=== PATIENT | male | born 1945 | race Caucasian/White ===

== ENCOUNTER → 2016-10-05 | Outpatient (CLI) | payer OTHER | LOC: FIMAGING 13:51 | PROVIDERS: ATTEND Physical Medicine & Rehabilitation | DX: M51.86 Other intervertebral disc disorders, lumbar region (principal); M53.86 Other specified dorsopathies, lumbar region; M48.06 Spinal stenosis, lumbar region; Z98.1 Arthrodesis status ==

== ENCOUNTER → 2017-06-12 | Outpatient (CLI) | payer OTHER | LOC: FIMAGING 13:56 | PROVIDERS: ATTEND Internal Medicine | DX: Z12.2 Encounter for screening for malignant neoplasm of respiratory organs (principal); R91.8 Other nonspecific abnormal finding of lung field; Z87.891 Personal history of nicotine dependence ==

== ENCOUNTER → 2017-11-11 | Outpatient (CLI) | payer OTHER | LOC: FIMAGING 10:48 | PROVIDERS: ATTEND Internal Medicine | DX: R91.1 Solitary pulmonary nodule (principal); I25.10 Atherosclerotic heart disease of native coronary artery without angina pectoris ==

== ENCOUNTER → 2017-12-25 | Outpatient (CLI) | payer OTHER | LOC: BMCIMAGING 11:48 | PROVIDERS: ATTEND Internal Medicine | DX: M17.12 Unilateral primary osteoarthritis, left knee (principal); M25.462 Effusion, left knee ==

== ENCOUNTER → 2018-04-03 | Outpatient (CLI) | payer OTHER | LOC: FIMAGING 11:45 | PROVIDERS: ATTEND Nurse Practitioner | DX: Z09 Encounter for follow-up examination after completed treatment for conditions other than malignant neoplasm (principal); Z98.890 Other specified postprocedural states; M48.061 Spinal stenosis, lumbar region without neurogenic claudication; M43.16 Spondylolisthesis, lumbar region; M51.26 Other intervertebral disc displacement, lumbar region ==

== ENCOUNTER 2018-05-07 05:00 | Inpatient (IN) | payer OTHER ==
[2018-05-07] MEDS ORDERED: ceFAZolin 2 GM/DEXTROSE 100 ML IV ONE (05:46)
[2018-05-07] MEDS ORDERED: morphINE SR 15 MG TAB PO ONE (05:46)
[2018-05-07] MEDS ORDERED: GABAPENTIN 300 MG CAP PO ONE (05:46)
[2018-05-07] MEDS ORDERED: morphINE PF 0.2 MG in SYRINGE INTRATHECAL 1 SYR IT ONE (05:46)
[2018-05-07] MEDS ORDERED: ACETAMINOPHEN 500 MG TAB PO ONE (05:46)
[2018-05-07] MEDS ORDERED: LR 1,000 ML IV ONE (05:47)
[2018-05-07] MEDS ORDERED: BUPIVACAINE 0.25% 30 ML SDV ONE (06:26)
[2018-05-07] MEDS ORDERED: EPINEPHrine 1 MG/ML INJ ONE (06:26)
[2018-05-07] MEDS ORDERED: THROMBIN (BOVINE) 20,000 UNIT VIAL TP ONE (06:26)
[2018-05-07] MEDS ORDERED: CHLORHEXIDINE GLUC HIBICLENS 118 ML BTL TP ONE ×2 (06:26→06:27)
[2018-05-07] MEDS ORDERED: BACITRACIN 50,000 UNITS/10 ML SYR IRR ONE (06:26)
--- NOTE | 2018-05-07 06:51 | PDHPUP ---
History & Physical Update H&P update statement: This history and physical update is based on an assessment of the patient which was completed after admission or registration (within 24 hours), but prior to the surgery/procedure. H&P update: H&P reviewed & patient examined, no change in patient's condition since H&P completed (Consents signed and site marked. All questions answered.)
--- NOTE | 2018-05-07 06:59 | PDANEPAE ---
ANE Past Medical History - Cardiovascular History Hx Hypertension: Yes Hx Arrhythmias: Yes Hx Chest Pain: No Hx Coronary Artery / Peripheral Vascular Disease: Yes Hx CHF / Valvular Disease: No Hx Palpitations: No Cardiovascular History Comment: hx of afib from medication. CAD. hyperlipidemia. followed by [facility] cardiology Dr Brown - Pulmonary History Hx COPD: No Hx Asthma/Reactive Airway Disease: No Hx Recent Upper Respiratory Infection: No Hx Oxygen in Use at Home: No Hx Sleep Apnea: Yes Sleep Apnea Screening Result - Last Documented: Positive Pulmonary History Comment: lawrence triggers - Neurologic History Hx Cerebrovascular Accident: No Hx Seizures: No Hx Dementia: No Neurologic History Comment: spinal stenosis. 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 right RTC. left elbow. left knee scope. back x2 ANE Review of Systems Review of Systems: - Exercise capacity METS (RN): 4 METS ANE Patient History - Allergies Allergies/Adverse Reactions: diazepam [From Valium] Allergy (Verified 05/06/18 12:19) unable to move legs Penicillins Allergy (Verified 05/06/18 12:19) tremendous rash, throat closes procaine [From Novocain] Allergy (Verified 05/06/18 12:19) throat closes- has been a long time ago theophylline [Theophylline] Allergy (Verified 05/06/18 12:19) throws pt into AFIB - Home Medications Home Medications: Gemfibrozil [Lopid 600 MG (RX)] 600 mg PO DAILY 10/24/11 [Last Taken 05/07/18] Insulin Glargine [Lantus 100 UNITS/ML (RX)] 50 units SC BID 10/24/11 [Last Taken 05/07/18 03:00 26 units] Insulin Lispro [humALOG LISPRO 100 units/ml (RX)] 12 - 14 unit SC TIDMEAL [Last Taken 05/06/18 12:00 12 units] Lisinopril [Zestril 20 mg (RX)] 40 mg PO DAILY 10/24/11 [Last Taken 05/06/18] Omeprazole [Prilosec 20 mg] 20 mg PO DAILY 10/24/11 [Last Taken 05/07/18] metFORMIN HCL [Glucophage 500 mg (RX)] 1,000 mg PO BIDMEAL 10/24/11 [Last Taken 05/06/18] Cyanocobalamin [Vitamin B12 (*)] 2,500 mcg PO DAILY 05/01/18 [Last Taken ] Dulaglutide [Trulicity] 1.5 mg SQ SA 05/01/18 [Last Taken 05/02/18] Pregabalin [Lyrica 50mg (*)] 50 mg PO TID 05/01/18 [Last Taken 05/06/18] amLODIPine BESYLATE [Norvasc 5 mg (*)] 5 mg PO DAILY 05/01/18 [Last Taken ] traMADol [Ultram 50 mg (*)] 50 mg PO Q4 PRN 05/01/18 [Last Taken 05/06/18] - NPO status NPO Since - Liquids (Date): 05/07/18 NPO Since - Liquids (Time): 03:00 NPO Since - Solids (Date): 05/06/18 NPO Since - Solids (Time): 18:00 - Smoking Hx Smoking Status: Former smoker - Family Anes Hx Family Hx Anesthesia Complications: none ANE Labs/Vital Signs - Vital Signs Blood Pressure: 144/83 Heart Rate: 79 Respiratory Rate: 16 O2 Sat (%): 88 Height: 176.53 cm Weight: 117.027 kg ANE Physical Exam - Airway Neck exam: FROM Mallampati Score: Class 3 Mouth exam: normal dental/mouth exam - Pulmonary Pulmonary: clear to auscultation - Cardiovascular Cardiovascular: regular rate and rhythym - ASA Status ASA Status: III ANE Anesthesia Plan Anesthesia Plan: general endotracheal anesthesia Lines/Monitors: arterial line
[2018-05-07] MEDS ORDERED: DEXMEDETOMIDINE HCL 400 MCG in NS 100 ML IV SCH (07:00)
[2018-05-07] MEDS ORDERED: PROPOFOL 200 MG/20 ML VIAL ONE (07:04)
[2018-05-07] MEDS ORDERED: fentaNYL 100 MCG/2 ML INJ ONE (07:04)
[2018-05-07] MEDS ORDERED: PROPOFOL/EMULSION 500 MG/50 ML BOTTLE IV ONE ×2 (07:04→08:56)
[2018-05-07] MEDS ORDERED: LIDOCAINE 2% 100 MG/5 ML SYR ONE (07:09)
[2018-05-07] MEDS ORDERED: ROCURONIUM 50 MG/5 ML VIAL ONE ×2 (07:09→08:01)
[2018-05-07] MEDS ORDERED: METOCLOPRAMIDE 10 MG/2 ML VIAL ONE (07:12)
[2018-05-07] MEDS ORDERED: GLYCOPYRROLATE 0.2 MG/1 ML VIAL ONE (07:48)
[2018-05-07] MEDS ORDERED: DEXAMETHASONE 4 MG/ML VIAL ONE (07:50)
[2018-05-07] MEDS ORDERED: PHENYLEPHRINE 10 MG/ML SDV ONE (08:09)
[2018-05-07] MEDS ORDERED: VASOPRESSIN 20 UNIT/ML VIAL ONE (08:27)
[2018-05-07] MEDS ORDERED: METOCLOPRAMIDE 10 MG/2 ML VIAL IVP PRN (10:36)
[2018-05-07] MEDS ORDERED: ONDANSETRON 4 MG/2 ML VIAL IVP PRN ×2 (10:36→11:25)
[2018-05-07] MEDS ORDERED: ALBUTEROL 3 ML DEYVIAL IH PRN (10:36)
[2018-05-07] MEDS ORDERED: NALOXONE HCL 0.4 MG/ML INJ IVP PRN ×2 (10:36→11:25)
[2018-05-07] MEDS ORDERED: HYDROmorphONE/DILAUDID 2 MG/ML INJ IVP PRN (10:36)
[2018-05-07] MEDS ORDERED: PROMETHAZINE HCL 25 MG/ML INJ IVP PRN (10:36)
[2018-05-07] MEDS ORDERED: MEPERIDINE 25 MG/0.5 ML AMP IVP PRN (10:36)
[2018-05-07] MEDS ORDERED: fentaNYL 100 MCG/2 ML INJ IVP PRN (10:36)
[2018-05-07] MEDS ORDERED: LR 500 ML IV PRN ×2 (10:36→11:49)
[2018-05-07] MEDS ORDERED: ONDANSETRON 4 MG/2 ML VIAL ONE (10:44)
[2018-05-07] MEDS ORDERED: MAGNESIUM HYDROXIDE 30 ML UDCUP PO PRN (11:25)
[2018-05-07] MEDS ORDERED: ONDANSETRON DISINTEGRATING 4 MG TAB PO PRN (11:25)
[2018-05-07] MEDS ORDERED: POLYETHYLENE GLYCOL 3350 17 GM PKT PO PRN (11:25)
[2018-05-07] MEDS ORDERED: diphenhydrAMINE 25 MG CAP PO PRN (11:25)
[2018-05-07] MEDS ORDERED: BISACODYL 10 MG SUPP PR PRN (11:25)
[2018-05-07] MEDS ORDERED: LACTULOSE 20 GM/30 ML UDCUP PO PRN (11:25)
[2018-05-07] MEDS ORDERED: NS 1,000 ML IV SCH (11:30)
--- NOTE | 2018-05-07 11:35 | POSTOPPROG ---
Post Op Note Date of Operation: 05/07/18 Surgeon: Roldan Claros Cartridge Loading Operator: SEVERO Grossman APC Anesthesia: GET(General Endotracheal) Pre-op Diagnosis: lumbar stenosis, spondylothesis Post-op Diagnosis: lumbar stenosis, spondylothesis Indication: lumbar stenosis, spondylothesis Procedure: Exploration and revision of hardware, L4/5 right TLIF/PSF Inf/Abcess present in the surg proc area at time of surgery?: No EBL: 100-500 Drains: Odin ALEXANDER Addendum - Addendum .: S: Resting comfortably O: NAD A&Ox3 MAEx4 5/5 and equal in BUE and BLE A/P Exploration and revision/removal of hardware L5/S1 and L4/5 right TLIF/PSF -Optimize pain management -Advance diet as tolerated -LSO when OOB -PT/OT -Post op xrays pending -JPx1 -DVT prophx: TEDs, SCDs, Lovenox okay POD1 -Please notify NS wimarcos any change in neuro/motor exam
--- NOTE | 2018-05-07 11:56 | GOP ---
[f rep st] OPERATIVE REPORT DATE OF OPERATION: 05/07/2018 SURGEON: Roldan Claros MD LICENSED JOURNEYMAN ELECTRICIAN: Phyllis Grossman PA-C. ANESTHESIA: General. PREOPERATIVE DIAGNOSIS: 1. L4-L5 grade 1 spondylolisthesis with bilateral lateral recess and foraminal stenosis. 2. History of prior fusion, L5-S1, with bilateral pedicle screw placement, as well as Coflex placement. 3. Lower extremity radiculopathy and claudication. 4. Treatment refractory to nonoperative intervention. POSTOPERATIVE DIAGNOSIS: 1. L4-L5 grade 1 spondylolisthesis with bilateral lateral recess and foraminal stenosis. 2. History of prior fusion, L5-S1, with bilateral pedicle screw placement, as well as Coflex placement. 3. Lower extremity radiculopathy and claudication. 4. Treatment refractory to nonoperative intervention. PROCEDURE PERFORMED: 1. Posterior arthrodesis with approach to L4, L5, S1. 2. Exploration of prior hardware between L4-L5 including Coflex device, as well as bilateral pedicle screws at L5-S1 from the DePuy Viper system. 3. Removal of Coflex device at L4-5, as well as bilateral pedicle screws and rods from the L5-S1 levels from the DePuy Viper system. 4. Posterolateral fusion with bilateral pedicle screw placement at L4 and L5 from the [employer] Solera 4.75 system. 5. Decompressive laminectomy, L4-L5, with right-sided L4-L5 facetectomy and foraminotomy with nerve root decompression. 6. Right-sided L4-5 transforaminal lumbar interbody fusion with a 9 mm titanium polyetheretherketone elevated cage filled with morselized autograft and allograft. 7. Posterolateral fusion on the left between L4-5 with morselized autograft and allograft. 8. Use of intraoperative 3D Stealth navigation. 9. Use of intraoperative fluoroscopy, less than 1 hour physician time. 10. Use of neuromonitoring. 11. Use of operative microscope. 12. Injection of preservative-free intrathecal narcotics. FINDINGS: per imaging SPECIMENS: None. ESTIMATED BLOOD LOSS: 350 mL. INDICATIONS: The patient is a very pleasant 72-year-old gentleman who has undergone prior lumbar fusion with Dr. Matt Werner, as well as Dr. North up in [place]. The patient presented with worsening bilateral lower extremity radiculopathy and had evidence of grade 1 spondylolisthesis at L4-5 above his prior fusion at L5-S1 with bilateral neural foraminal stenosis. After discussion of risks, benefits, and alternatives, and after failing nonoperative intervention, we decided to proceed with the surgery as described above. DESCRIPTION OF PROCEDURE: The patient was brought to the operating theater and underwent general endotracheal anesthesia without complications. Venodynes, CHRISTIANO hose, and the appropriate lines were placed by Anesthesia. He was flipped prone onto the Odin table, and all bony prominences were inspected and padded. The previous lumbar incision was identified and prepped and draped in the usual sterile surgical fashion. A time-out was completed per protocol, and the patient received antibiotics within 1 hour of incision. The incision was infiltrated with Marcaine with epinephrine and taken down with the scalpel blade. Using monopolar, the incision was taken down in the midline through the lumbodorsal fascia and a subperiosteal dissection carried out at the spinous process of L4. We carried the dissection out laterally to avoid the previous defect and identified the hardware at the L5-S1 level, as well as the L4-5 Coflex device. Deep retractors were placed to maintain our exposure. The dissection was extremely tedious secondary to the patient's body habitus. We then removed the sequential cap screws from the bilateral L5 and S1 levels, as well as bilateral rods. We explored this area and he was noted to be fused on further distraction attempts. We removed the bilateral L5 and S1 pedicle screws from the DePuy Viper system. We replaced the bilateral L5 screws with 6.5 x 55 mm screws from the [employer] Solera 4.75 system. We removed 7.0 x 50 mm screws from the S1 level. We attached the 3D Stealth navigation clamp to the spinous process of L4 and completed a 3D Stealth navigation spin. Using the 3D Stealth navigation, we placed the supervising airplane pilot holes for the bilateral pedicle screws in L4. All of these were manually palpated with no evidence of any cortical breaches. We then tapped and placed 6.5 x 55 mm screws bilaterally at L4 from [employer] Solera 4.75 system. At this point, another 3D Stealth navigation spin demonstrated good placement of the hardware. At this point, the microscope was brought into the field to assist with microscopic dissection and to maintain illumination and magnification. Using a combination of the bur tip on the drill bit, Kerrison punches, and Leksell rongeur, we completed a decompressive laminectomy at L4-L5. The tissue was noted to be extremely adherent and inflamed within this area. We completed aggressive facetectomy on the right side at L4-5. We distracted the L4-5 disk space and completed a right-sided L4-5 diskectomy. We prepared the cartilaginous endplates and measured the interbody space. We then placed a 9 x 26 mm titanium PEEK Elevate cage filled with morselized autograft and allograft anteriorly and toward the midline. We packed additional morcellized autograft in the disk space for the interbody fusion, and let down the distraction. I attempted to do a foraminotomy on the left side between L4-5 but the tissue was noted to be extremely scarred and adherent at this level, and I therefore opted not to the risk the possibly of a dural tear or nerve root injury. At this point, I decorticated the bone on the left side between L4-5. We placed 2 lordotic rods on the heads of the screws between L4-5 and secured them down with cap screws which were then tightened per the student services director's setting. We placed morselized autograft and allograft on the left side for the posterolateral fusion. We injected preservative-free intrathecal narcotics. A drain was left in the subfascial space. The wound was closed in multiple layers including Vicryl sutures for the deep layers and Dermabond at the skin. The patient's wounds were dressed sterilely. He was flipped supine onto the transfer cart where he was awakened, extubated, and taken to the recovery in stable condition. There were no complications and no noted changes on neuromonitoring throughout the procedure. Please note, this surgery was greater than 50% more challenging than the average surgery secondary to the patient's inflammatory tissues, as well as his body habitus for the dissection. COMPLICATIONS: None. /[id number]/MODL MTDD
[2018-05-07] MEDS: INSULIN LISPRO 100 UNIT/ML SC SCH ×2 (12:00→18:09)
[2018-05-07] MEDS ORDERED: PHENYLEPHRINE HCL 100 MCG/ML SYR ONE (12:05)
[2018-05-07] MEDS: PHENYLEPHRINE HCL 100 MCG/ML SYR IVP PRN ×3 (12:05→12:34)
--- NOTE | 2018-05-07 12:27 | POSTANESTH ---
Post Anesthetic Evaluation Cardiovascular Status: Tx Hyper/Hypo-tension Respiratory Status: Tx Decrease in SpO2 Level of Consciousness/Mental Status: Can Participate in Eval Pain Control: Adequate, Prn Tx Ordered Nausea/Vomiting Control: Adequate, Prn Tx Ordered Complications Possibly Related to Anesthesia: None Noted (No complications directly related to anesthesia, but patient with decreased SpO2, requiring 15L oxymask to maintain SpO2 > 90%. Diminished breath sounds at bases. No crackles or wheezes. In PACU, decreased BP, treated with phenylephrine IVP + fluids. Instructed RN to give fluids and have low threshold to start phenylephrine IVP + drip to maintain SBP > 100 mmHg. The patient is calm, but awake and answering questions appropriately. No distress or obtundation.)
[2018-05-07] MEDS ORDERED: ALBUMIN 5% 500 ML IV ONE (12:30)
[2018-05-07] MEDS ORDERED: PHENYLEPHRINE HCL 50 MG in D5W 250 ML IV SCH (12:30)
--- NOTE | 2018-05-07 12:41 | PDMN ---
Medical Necessity Medical necessity: [facility] IP only surgery; cpt 69483 Lumbar Fusion (L4/5 TLIF/PSF )
[2018-05-07] MEDS ORDERED: ACETAMINOPHEN 500 MG TAB ONE (14:41)
[2018-05-07] MEDS ORDERED: CEFAZOLIN 2 GM/DEXTROSE/100 ML BAG IV ONE (14:42)
[2018-05-07] MEDS ORDERED: ALTEPLASE 2 MG VIAL IVP PRN (14:45)
[2018-05-07] MEDS: ACETAMINOPHEN 500 MG TAB PO SCH ×2 (14:46→21:04)
[2018-05-07] MEDS: ceFAZolin 2 GM/DEXTROSE 100 ML IV SCH ×2 (14:52→21:34)
[2018-05-07] MEDS: PREGABALIN 50 MG CAP PO SCH (15:48)
[2018-05-07] MEDS: metFORMIN HCL 500 MG TAB PO SCH (18:10)
[2018-05-07] MEDS ORDERED: SCOPOLAMINE HYDROBROMIDE 1 MG/3 DAYS PATCH TD SCH (21:00)
[2018-05-07] MEDS ORDERED: FAMOTIDINE 20 MG TAB PO SCH (21:00)
[2018-05-07] MEDS: INSULIN GLARGINE 100 UNITS/ML UNIT SC SCH (21:04)
[2018-05-07] MEDS: SENNOSIDES/DOCUSATE SODIUM TAB PO SCH (21:04)
[2018-05-07] MEDS: FAMOTIDINE 20 MG/NACL 50 ML IV SCH (21:11)
[2018-05-08] MEDS: PREGABALIN 50 MG CAP PO SCH ×4 (00:22→20:52)
[2018-05-08] MEDS: METHOCARBAMOL 750 MG TAB PO PRN ×3 (04:52→21:00)
[2018-05-08] MEDS: oxyCODONE IR 5 MG TAB PO PRN ×2 (06:14→12:23)
[2018-05-08] MEDS: ACETAMINOPHEN 500 MG TAB PO SCH ×3 (06:15→20:54)
[2018-05-08] MEDS: FAMOTIDINE 20 MG/NACL 50 ML IV SCH (07:21)
[2018-05-08] MEDS: INSULIN LISPRO 100 UNIT/ML SC SCH ×3 (07:24→17:13)
[2018-05-08] MEDS: SENNOSIDES/DOCUSATE SODIUM TAB PO SCH ×2 (07:58→20:52)
[2018-05-08] MEDS: metFORMIN HCL 500 MG TAB PO SCH ×2 (07:58→17:13)
[2018-05-08] MEDS: PANTOPRAZOLE SODIUM 40 MG TAB PO SCH (07:59)
[2018-05-08] MEDS: INSULIN GLARGINE 100 UNITS/ML UNIT SC SCH ×2 (08:04→20:55)
[2018-05-08] MEDS: GEMFIBROZIL 600 MG TAB PO SCH (08:17)
--- NOTE | 2018-05-08 09:51 | ASMTCASEMG ---
Living Arrangements What is your living Answers: With Spouse arrangement? Who do you live with? Type Of Residence What kind of residence do Answers: House you live in? Discharge Plan Comments Coordination Status Comments Notes: Patient is a 72yo male who comes to [facility] for spinal surgery. OT/PT evals have been ordered. D/C plan TBD. CM will follow. Date Signed: 05/08/2018 09:51 AM Electronically Signed By:Jessica Marmolejo LCSW
--- NOTE | 2018-05-08 09:54 | NEUSURGPN ---
Assessment/Plan: A/P Exploration and revision/removal of hardware L5/S1 and L4/5 right TLIF/PSF POD1 -Optimize pain management -LSO when OOB -PT/OT -Post op xrays pending -JPx1 continue today -DVT prophx: TEDs, SCDs, Lovenox okay POD1 -Hypotension improved, will continue KV fluids hold BP meds and transfer to the floor -Please notify NS wiht any change in neuro/motor exam Subjective: low back pain, tolerable with medications. Objective: O: NAD A&Ox3 MAEx4 5/ and equal in BUE and BLE. Incision c/d/i. MULUGETA drain serosanguineous - Physician Discussed Patient with Dr.: Harlan Neurosurgery Physical Exam - Vitals, I&O, Labs I and O 05/07/18 05/08/18 05/09/18 05:59 05:59 05:59 Intake Total 4288 650 Output Total 4035 40 Balance 253 610 Weight 117.027 kg 117.027 kg Intake: Oral (ml) 840 650 IV Intake (ml) 2500 IV Infused (ml) 948 Ns 1,000 ml @ 75 mls/hr 870 IV CONT SENAIT Rx#: [id number] Phenylephrine HCl 50 mg 78 In D5w 250 ml @ Titrate IV CONT SENAIT Rx#: [id number] Output: Urine (ml) 2050 Catheter 2050 Estimated Blood Loss (ml) 300 Emesis (ml) 1200 MULUGETA Drain Output (ml) 485 40 Back Odin De La Garza 485 40 Other: Intake Quantity Yes Sufficient Number of Stools Catheter 0 Vital Signs Temp Pulse Resp BP Pulse Ox 37.0 C 74 13 119/63 92 05/08/18 06:00 05/08/18 07:45 05/08/18 07:45 05/08/18 07:45 05/08/18 07:45 Laboratory Results 05/07/18 11:49 ICD10 Worksheet Patient Problems: Problems Problem Status Onset Lumbar stenosis Acute
[2018-05-08] MEDS: LISINOPRIL 20 MG TAB PO SCH (10:17)
[2018-05-08] MEDS: amLODIPine BESYLATE 5 MG TAB PO SCH (10:17)
[2018-05-08] MEDS: traMADol 50 MG TAB PO PRN (10:46)
[2018-05-08] MEDS: ENOXAPARIN 40 MG/0.4 ML SYR SC SCH (16:18)
[2018-05-08] MEDS: FAMOTIDINE 20 MG TAB PO SCH (20:52)
[2018-05-09] MEDS: traMADol 50 MG TAB PO PRN ×2 (01:40→14:24)
[2018-05-09] MEDS: ACETAMINOPHEN 500 MG TAB PO SCH ×3 (06:31→21:28)
[2018-05-09] MEDS: INSULIN LISPRO 100 UNIT/ML SC SCH ×3 (08:02→17:16)
[2018-05-09] MEDS: metFORMIN HCL 500 MG TAB PO SCH ×2 (08:10→17:14)
[2018-05-09] MEDS: oxyCODONE IR 5 MG TAB PO PRN (08:17)
--- NOTE | 2018-05-09 09:30 | SOAPPROG ---
SOAP Progress Note Assessment/Plan: Assessment: 72 yo M sp hardware removal and L4/5 TLIF Plan: neuro: stable and doing well overall :) PT/OT post op x-rays look great scd/marvin/lovenox for dvt prophylaxis constipation: RN to be aggressive with bowel protocol MULUGETA x1, dc before dc home please call with neuro changes 05/09/18 09:28 Subjective: + back pain, no leg pain, no weakness. Objective: Vital Signs Temp Pulse Resp BP Pulse Ox 36.8 C 84 16 148/80 H 91 L 05/09/18 07:56 05/09/18 07:56 05/09/18 07:56 05/09/18 07:56 05/09/18 07:56 Laboratory Results 05/07/18 11:49 05/08/18 05/09/18 05/10/18 05:59 05:59 05:59 Intake Total 4288 3495 500 Output Total 4035 450 Balance 253 3045 500 AAOx4 ,+FC PERRL, EOMI, no facial droop 5/5 + light touch C/D/I ICD10 Worksheet Patient Problems: Problems Problem Status Onset Lumbar stenosis Acute
[2018-05-09] MEDS: SENNOSIDES/DOCUSATE SODIUM TAB PO SCH ×2 (10:12→21:29)
[2018-05-09] MEDS: amLODIPine BESYLATE 5 MG TAB PO SCH (10:13)
[2018-05-09] MEDS: FAMOTIDINE 20 MG TAB PO SCH ×2 (10:13→21:28)
[2018-05-09] MEDS: PANTOPRAZOLE SODIUM 40 MG TAB PO SCH (10:14)
[2018-05-09] MEDS: PREGABALIN 50 MG CAP PO SCH ×3 (10:14→21:28)
[2018-05-09] MEDS: GEMFIBROZIL 600 MG TAB PO SCH (10:14)
[2018-05-09] MEDS: LISINOPRIL 20 MG TAB PO SCH (10:14)
[2018-05-09] MEDS: ENOXAPARIN 40 MG/0.4 ML SYR SC SCH (10:16)
[2018-05-09] MEDS: INSULIN GLARGINE 100 UNITS/ML UNIT SC SCH ×2 (10:17→22:32)
[2018-05-09] MEDS ORDERED: (Dulaglutide [Trulicity] 1.5 MG) SQ SCH (11:23)
[2018-05-09] MEDS: METHOCARBAMOL 750 MG TAB PO PRN (14:23)
[2018-05-10] MEDS: ACETAMINOPHEN 500 MG TAB PO SCH (05:54)
[2018-05-10 08:02] VITALS: BP 137/73
[2018-05-10] MEDS: traMADol 50 MG TAB PO PRN (08:10)
[2018-05-10] MEDS: INSULIN LISPRO 100 UNIT/ML SC SCH ×2 (08:24→12:47)
[2018-05-10] MEDS: metFORMIN HCL 500 MG TAB PO SCH (08:25)
[2018-05-10] MEDS: SENNOSIDES/DOCUSATE SODIUM TAB PO SCH (08:30)
[2018-05-10] MEDS: FAMOTIDINE 20 MG TAB PO SCH (08:30)
[2018-05-10] MEDS: GEMFIBROZIL 600 MG TAB PO SCH (08:30)
[2018-05-10] MEDS: amLODIPine BESYLATE 5 MG TAB PO SCH (08:31)
[2018-05-10] MEDS: PREGABALIN 50 MG CAP PO SCH (08:31)
[2018-05-10] MEDS: LISINOPRIL 20 MG TAB PO SCH (08:31)
[2018-05-10] MEDS: ENOXAPARIN 40 MG/0.4 ML SYR SC SCH (08:32)
[2018-05-10] MEDS: PANTOPRAZOLE SODIUM 40 MG TAB PO SCH (08:32)
[2018-05-10] MEDS: INSULIN GLARGINE 100 UNITS/ML UNIT SC SCH (08:34)
--- NOTE | 2018-05-10 10:32 | SOAPPROG ---
SOAP Progress Note Assessment/Plan: Assessment: 72 yo M sp hardware removal and L4/5 TLIF Plan: neuro: stable and doing well overall :) PT/OT post op x-rays look great scd/marvin/lovenox for dvt prophylaxis constipation: RN to be aggressive with bowel protocol MULUGETA x1, dc before dc home dc home with HHC please call with neuro changes 05/09/18 09:28 05/10/18 10:31 Subjective: back pain improving, no leg pain. Objective: Vital Signs Temp Pulse Resp BP Pulse Ox 36.7 C 89 14 137/73 H 92 05/10/18 08:00 05/10/18 08:00 05/10/18 08:00 05/10/18 08:31 05/10/18 08:00 Laboratory Results 05/07/18 11:49 05/09/18 05/10/18 05/11/18 05:59 05:59 05:59 Intake Total 3495 1900 500 Output Total 450 470 Balance 3045 1430 500 AAOx4, +FC PERRL, EOMI, no facial droop 5/5 + light touch C/D/I ICD10 Worksheet Patient Problems: Problems Problem Status Onset Lumbar stenosis Acute
--- NOTE | 2018-05-10 10:33 | PDIAF ---
- Diagnosis Code Status: Full Code - Medication Management Discharge Medications: electronically signed and located in the Home Medication List. PICC Care - Routine: N/A - Orders Services needed: Home Care, Physical Therapy, Occupational Therapy Home Care Face to Face: I certify that this patient was under my care and that I had the required oknu-bh-habn encounter meeting the encounter requirements on the discharge day. My findings support the fact that the patient is homebound as defined in Home Care Face to Face Continued: CMS Chapter 7 Medicare Benefits Manual 30.1.1 , The condition of the patient is such that there exists a normal inability to leave home and consequently, leaving home would require a considerable and taxing effort. Diet Recommendation: no restrictions on diet Diet Texture: Regular Texture Diet Rice: No Additional Instructions: discharge with lumbar fusion post op instructions follow up with dr jeong in 2 weeks, LSO brace when out of bed. - Follow Up Care Current Providers and Referrals: Penny Ragsdale MD [Primary Care Provider] -
--- NOTE | 2018-05-10 11:56 | ASMTLACE ---
LACE Length of stay for Answers: 3 days current admission Acuity / Level of Answers: Yes Care: Did the patient have an inpatient admission? Comorbidities - select Answers: Coronary Artery Disease all that apply Diabetes (uncontrolled or controlled) Opioid dependence / Chronic pain Other Notes: HTN; HLD; AFib # of Emergency department Answers: 0 visits in the last 6 months Score: 14 Date Signed: 05/10/2018 11:55 AM Electronically Signed By:Denia Pineda RN
--- NOTE | 2018-05-10 11:59 | ASMTDCNOTE ---
Case Management Discharge Discharge Order Complete? Answers: Yes Patient to Obtain Answers: Independently Medications Transportation Arranged Answers: Family/Friends Faxed Final Orders Answers: Yes Family Notified Answers: Yes Discharge Comments Notes: Patient discharged home with family. Home health ordered from [facility]. Date Signed: 05/10/2018 11:58 AM Electronically Signed By:Denia Pineda RN
--- NOTE | 2018-05-10 13:07 | ASDISCHSUM ---
Discharge Information Plan Status:Home with Home Health Medically Cleared to Leave: Discharge Date:05/10/2018 12:30 PM CM D/C Disposition: ADT D/C Disposition:Home Health Service Projected Discharge Date:05/10/2018 11:00 AM Transportation at D/C: Discharge Delay Reason: Follow-Up Date:05/10/2018 11:00 AM Discharge Slot: Final Diagnosis: Placement Information Referral Type:*Home Health Care Services Referral ID:[id number] Provider Name:[facility] Address 1:[address] Phone Number: Address [address]: [address] Fax Number: [facility]:[place] Selection Factors: State:[place] Patient Contact Information Contact Name:TOYINMARII Relationship: Address:[address] Work Phone: [facility] Phone: State/Zip Code:[place] [address] Email: Financial Information Financial Class:Medicare Primary Plan Desc:MEDICARE INPATIENT Primary Plan Number:[id number] Secondary Plan Desc:LINE CONSTRUCTION BENEFIT Secondary Plan Number:[id number] Assessment Information LACE LACE Length of stay for Answers: 3 days current admission Acuity / Level of Answers: Yes Care: Did the patient have an inpatient admission? Comorbidities - select Answers: Coronary Artery Disease all that apply Diabetes (uncontrolled or controlled) Opioid dependence / Chronic pain Other Notes: HTN; HLD; AFib # of Emergency department Answers: 0 visits in the last 6 months Score: 14 Date Signed: 05/10/2018 11:55 AM Electronically Signed By:Denia Pineda RN [facility] Initial CM Assessment Living Arrangements What is your living Answers: With Spouse arrangement? Who do you live with? Type Of Residence What kind of residence do Answers: House you live in? Discharge Plan Comments Coordination Status Comments Notes: Patient is a 72yo male who comes to [facility] for spinal surgery. OT/PT evals have been ordered. D/C plan TBD. CM will follow. Date Signed: 05/08/2018 09:51 AM Electronically Signed By:Jessica Marmolejo LCSW Case Management Discharge Plan Note Case Management Discharge Discharge Order Complete? Answers: Yes Patient to Obtain Answers: Independently Medications Transportation Arranged Answers: Family/Friends Faxed Final Orders Answers: Yes Family Notified Answers: Yes Discharge Comments Notes: Patient discharged home with family. Home health ordered from [facility]. Date Signed: 05/10/2018 11:58 AM Electronically Signed By:Denia Pineda RN Intervention Information
== END 2018-05-10 12:30 | disposition home health service (06) | DRG 455 ==
LOC: F3N 05:00 → F2N 14:30 → F3N 05-08 14:39
PROVIDERS: ADMIT Neurological Surgery; ATTEND Neurological Surgery
PROC: 8E0WXBZ Computer Assisted Procedure of Trunk Region (ICD-10-PCS; principal; 2018-05-07 07:15)
PROC: 0SP00AZ Removal of Interbody Fusion Device from Lumbar Vertebral Joint, Open Approach (ICD-10-PCS; principal; 2018-05-07 07:15)
PROC: 0SG0071 Fusion of Lumbar Vertebral Joint with Autologous Tissue Substitute, Posterior Approach, Posterior Column, Open Approach (ICD-10-PCS; principal; 2018-05-07 07:15)
PROC: 00NY0ZZ Release Lumbar Spinal Cord, Open Approach (ICD-10-PCS; principal; 2018-05-07 07:15)
PROC: 4A1004G Monitoring of Central Nervous Electrical Activity, Intraoperative, Open Approach (ICD-10-PCS; principal; 2018-05-07 07:15)
PROC: 0SG00AJ Fusion of Lumbar Vertebral Joint with Interbody Fusion Device, Posterior Approach, Anterior Column, Open Approach (ICD-10-PCS; principal; 2018-05-07 07:15)
PROC: 02HV33Z Insertion of Infusion Device into Superior Vena Cava, Percutaneous Approach (ICD-10-PCS; 2018-05-07 07:15)
DX: M48.062 Spinal stenosis, lumbar region with neurogenic claudication (principal); M43.16 Spondylolisthesis, lumbar region; M51.16 Intervertebral disc disorders with radiculopathy, lumbar region; R93.1 Abnormal findings on diagnostic imaging of heart and coronary circulation; I25.10 Atherosclerotic heart disease of native coronary artery without angina pectoris; E11.65 Type 2 diabetes mellitus with hyperglycemia; E11.59 Type 2 diabetes mellitus with other circulatory complications; E11.69 Type 2 diabetes mellitus with other specified complication; E11.42 Type 2 diabetes mellitus with diabetic polyneuropathy; E78.5 Hyperlipidemia, unspecified; I10 Essential (primary) hypertension; Z87.891 Personal history of nicotine dependence; Z79.4 Long term (current) use of insulin; Z98.1 Arthrodesis status
CPT/HCPCS: 97116-GP; 97161-GP; 97166-GO; 97530-GP; 97535-GO; C1713; C1751; J0171; J0690; J1100; J1650; J1815; J2001; J2270; J2274; J2370; J2405; J2704; J2765; J3010; P9041

== ENCOUNTER → 2018-06-08 | Outpatient (CLI) | payer OTHER | LOC: BMCIMAGING 10:46 | PROVIDERS: ATTEND Internal Medicine | DX: Z13.820 Encounter for screening for osteoporosis (principal); M85.89 Other specified disorders of bone density and structure, multiple sites ==

== ENCOUNTER → 2018-06-26 | Outpatient (CLI) | payer OTHER | LOC: FIMAGING 09:48 | PROVIDERS: ATTEND Physician Assistant | DX: M43.17 Spondylolisthesis, lumbosacral region (principal); Z98.1 Arthrodesis status ==

== ENCOUNTER → 2018-08-07 | Outpatient (CLI) | payer OTHER | LOC: FIMAGING 09:59 ==